=== PATIENT | male | born 2000 | race Caucasian/White ===

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

== ENCOUNTER 2022-06-10 21:57 | Emergency (ER) | payer OTHER, SELFPAY ==
[2022-06-10 21:59] VITALS: BP 126/59; PULSE 85; RESP 16; TEMP 36.8; O2SAT 98; BMI 33.5
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
== END 2022-06-11 01:11 | disposition home or self-care (01) ==
PROVIDERS: Emergency Provider Emergency Medicine
DX: S82.54XA Nondisplaced fracture of medial malleolus of right tibia, initial encounter for closed fracture (principal); X50.1XXA Overexertion from prolonged static or awkward postures, initial encounter; Y93.51 Activity, roller skating (inline) and skateboarding; Y92.414 Local residential or business street as the place of occurrence of the external cause; Y99.9 Unspecified external cause status
CPT/HCPCS: 29515; 73600; 99284

== ENCOUNTER 2022-06-14 08:03 | Outpatient (REF) | payer OTHER, SELFPAY ==
--- NOTE | ~2022-06-14 | XR_ITS ---
EXAMINATION: XR ANKLE, RIGHT CLINICAL INFORMATION: Pain; follow-up medial malleolus fracture. COMPARISON: Prior radiographs, most recently 06/10/2022. TECHNIQUE: AP, lateral, and mortise views of the right ankle. FINDINGS: Bony mineralization is normal. There is stable alignment of a mildly displaced fracture of the medial malleolus. No new significant callus formation is seen. The ankle mortise shows slight medial widening to 6 mm. There is soft tissue swelling of the medial ankle. There is no right ankle joint effusion. Boehler's angle is normal. No calcaneal spur is seen. XR/XR ankle RT min 3V IMPRESSION: There is stable alignment of a mildly displaced fracture of the medial malleolus. No new significant callus formation is seen.
== END 2022-06-14 08:04 | disposition home or self-care (01) ==
LOC: HO.HOSX 08:03
PROVIDERS: Visit Provider Physician Assistant
DX: S82.51XA Displaced fracture of medial malleolus of right tibia, initial encounter for closed fracture (principal); X58.XXXD Exposure to other specified factors, subsequent encounter
CPT/HCPCS: 73610; 99202

== ENCOUNTER 2022-06-19 11:43 | Day surgery (SDC) | payer OTHER, SELFPAY ==
--- NOTE | 2022-06-18 09:49 | P.CONAN_ITS ---
Documented by User: Citlali Delarosa NP 06/18/22 09:50 HPI - Anesthesia Eval Consult details Narrative: 21yo M for Right Ankle Fracture ORIF [facility] Active Problems Active Problems: All Active Problems (Updated 06/14/22 @ 15:40 by Lily Logan) Fracture of medial malleolus, right, closed (Acute) Past Medical History Medical History (Updated 06/14/22 @ 15:40 by Lily Logan) Asthma Surgical History Surgical History (Updated 06/14/22 @ 14:28 by WALDEMAR Geiger) History of placement of ear tubes Social History Social History (Updated 06/14/22 @ 14:29 by WALDEMAR Geiger) Alcohol intake: never Patient Tobacco Use Status: Never used Tobacco Use of substances other than those prescribed or required for medical reasons: Yes Substance Use Type: Marijuana Are you DNR?: No Advance Directives: No Advance Directives Information Provided: Yes Current occupational status: unemployed Meds Allergies Allergy/AdvReac Type Severity Reaction Status Date / Time No Known Allergies Allergy Verified 06/14/22 14:35 [No Known Allergies*] Exam Exam Date and Time: June 18, 2022 0949 Assessment and Plan Assessment Anesthesia Assessment: Chart Reviewed Documented by User: Gladys Ballesteros MD 06/19/22 12:18 [facility] Past Medical History Medical History (Updated 06/14/22 @ 15:40 by Lily Logan) Asthma Family History Family history of problems with anesthesia: No Surgical History Surgical History (Updated 06/14/22 @ 14:28 by WALDEMAR Geiger) History of placement of ear tubes History of Problems with Anesthesia: No Social History Social History (Updated 06/14/22 @ 14:29 by WALDEMAR Geiger) Alcohol intake: never Patient Tobacco Use Status: Never used Tobacco Use of substances other than those prescribed or required for medical reasons: Yes Substance Use Type: Marijuana Are you DNR?: No Advance Directives: No Advance Directives Information Provided: Yes Current occupational status: unemployed Meds Allergies Allergy/AdvReac Type Severity Reaction Status Date / Time No Known Allergies Allergy Verified 06/14/22 14:35 [No Known Allergies*] Exam Airway Mallampati Class: II (Cracked tooth, front and back) TM Dist: >3cm Neck ROM: Full Heart: rrr Lungs: cta Assessment and Plan Assessment Anesthesia Assessment: Anesthesia Plan Discussed and Chart Reviewed Final Anesthetic Review Family History of Problems with Anesthesia: No History of Problems with Anesthesia: No NPO: Yes ASA Class: II Final Preanesthetic Review: No Changes in Pt Med Stat, Meds/Allgs Chart Reviewed and Consent Obtained/Reviewed Patient Risk: Intermediate Procedure Risk: Intermediate Anesthetic Plan Anesthetic Plan: GA Disposition: Standard PACU
[2022-06-19] VITALS (7 sets, daily range): BP systolic 120–137; BP diastolic 63–89; PULSE 70–87; RESP 14–18; TEMP 36.6–36.8; O2SAT 93–100; BMI 34.4
--- NOTE | ~2022-06-19 | FL_ITS ---
EXAMINATION: XR FLUOROSCOPY WITH IMAGES CLINICAL INFORMATION: Reduction medial malleolar fracture. COMPARISON: Ankle radiographs 05/18/2022 TECHNIQUE: Fluoroscopy Supervised By: Dr. Butch Ramirez. Fluoroscopy Time: 0.1 minutes. Cumulative Dose: 0.729 mGy. DAP: 0.0126 Gycm2. Images: 7. FINDINGS: Fracture base medial malleolus is reduced with 2 cannulated screws. Hardware intact. Fracture fragments in near-anatomic alignment. No dislocation. FL/FL guidance in OR IMPRESSION: Status post open reduction internal fixation medial malleolar fracture.
[2022-06-19] MEDS: Lactated Ringers 1,000 ML 100 ML IVCONT (12:29)
--- NOTE | 2022-06-19 14:18 | MHC.SHP ---
Pre-Procedural Eval Section A Date of Service: 06/19/22 The patient is an INPATIENT: No Changes since office visit: No Cold of Flu in the past 2 weeks, No New Medical Problems, No Changes in Medication and No Patient answered all questions The History & Physical has been completed within 30 days and I have reviewed it.: Yes Section B Chief Complaint: Nondisplaced fracture of lateral malleolus of righ Allergies: Allergies Allergy/AdvReac Type Severity Reaction Status Date / Time No Known Allergies Allergy Verified 06/14/22 14:35 [No Known Allergies*] Plan I have reviewed the history and physical and performed a pertinent physical examination on my patient. No changes have occurred unless specified. Time Spent With Patient Time: Total time managing care of this patient today ____ minutes.
--- NOTE | 2022-06-19 15:22 | PM.OP ---
Brief Operative Note Date of Service: 06/19/22 Pre-op diagnosis: Right medial malleolus fracture Post-op diagnosis: same Procedure: ORIF right medial malleolus Implants: 2 x 4.0 40 mm cannulated screws Surgeon: Butch Ramirez MD Anesthesia: GETA and local Was an Liquor Bridge Operator Helper used for this Procedure?: No Estimated blood loss (mL): 25 IV fluids (mL): 800 Pathology: none sent Condition: stable Disposition: PACU
--- NOTE | 2022-06-19 15:30 | W.PM.OPN ---
Operative Note Operative Note Date of Service: 06/19/22 Narrative: Date of Service: 06/19/22 Pre-op diagnosis: Right medial malleolus fracture Post-op diagnosis: same Procedure: ORIF right medial malleolus Implants: 2 x 4.0 40 mm cannulated screws Surgeon: Butch Ramirez MD Anesthesia: GETA and local Was an Radio Communications Superintendent used for this Procedure?: No Estimated blood loss (mL): 25 IV fluids (mL): 800 Pathology: none sent Condition: stable Disposition: PACU Procedure in detail: Patient was brought to the operating room and placed supine on the operative table. All bony prominences were well padded and a time-out was called to identify proper site proper procedure proper surgeon. IV antibiotics per weight were administered. I began by visulaizing the displaced medial mallolar fracture with biplanar fluoro. I then made a standard oblique medial incision over the medial malleolus. Care was take to avoid the saphenous vein and full-thickness flaps were taken down to the distal tibia. The fracture was identified and cleaned with a combination of curette, rongeur and irrigation. A lobster claw was used to provisionally reduce the fracture and 2 threaded k-wirtes were placed perpindicular to the fracture. Biplanar fluoroscopy was used to confirm hardware position and fracture reduction. Once I was satisfied that both of these were acceptable I overdrilled and placed 2 partially threaded 4;0 cancellous screws. I was satisfied with the position and the fracture reduction based on biplanar fluoroscopy. This syndesmosis was tested using external rotation test and was found to be stable. I radiolgraphically examined the ficual and there was no appreciable fracture. Therefore all instrumentation was removed and copious irrigation was performed. Absorbable suture and iwona were used for closure and the patient was placed into sterile dressings and a well-padded posterior splint. Tourniquet was let down and the patient was extubated brought to recovery room in stable condition there were no known complications.
[2022-06-19] MEDS: oxyCODONE HCl Immed Release 5 MG TABLET 10 MG PO (16:02)
[2022-06-19] MEDS: Ketorolac Tromethamine 30 MG/ML VIAL 15 MG IVPUSH (16:05)
== END 2022-06-19 16:36 ==
LOC: HO.SSS 11:44
PROVIDERS: Visit Provider Orthopaedic Surgery
PROC: (CPT 27766; principal; 2022-06-19 14:10)
DX: S82.51XA Displaced fracture of medial malleolus of right tibia, initial encounter for closed fracture (principal); V00.1 Rolling-type pedestrian conveyance accident; Y93.21 Activity, ice skating; Y92.9 Unspecified place or not applicable; Y99.8 Other external cause status; J45.909 Unspecified asthma, uncomplicated
CPT/HCPCS: 27766; C1713; J0690; J1100; J1885; J2250; J2795; J3010

== ENCOUNTER → 2022-07-01 11:06 | Outpatient (BNVA) | payer OTHER, SELFPAY | PROVIDERS: Visit Provider Physician Assistant | DX: Z13.89 Encounter for screening for other disorder (principal) ==

== ENCOUNTER 2022-07-08 11:28 | Outpatient (REF) | payer OTHER, SELFPAY ==
--- NOTE | ~2022-07-08 | XR_ITS ---
EXAMINATION: XR ANKLE, RIGHT CLINICAL INFORMATION: Pain. COMPARISON: Radiograph of the right ankle 06/14/2022. TECHNIQUE: AP, lateral, and mortise views of the right ankle. FINDINGS: There are two obliquely oriented screws traversing a medial malleolar fracture with improved alignment and decreased conspicuity of the fracture line compared to 06/14/2022 suggesting some degree of interval healing. No new injuries. Joint alignment is anatomic. Decreased soft tissue swelling along the medial surface of the ankle with skin surgical iwona noted. XR/XR ankle RT min 3V IMPRESSION: 1. Healing medial malleolar fracture with improved alignment. 2. No evidence of hardware failure. 3. No new injuries. 4. Decreased soft tissue swelling.
== END 2022-07-08 11:29 | disposition home or self-care (01) ==
LOC: HO.HOSX 11:28
PROVIDERS: Visit Provider Physician Assistant
DX: S82.51XD Displaced fracture of medial malleolus of right tibia, subsequent encounter for closed fracture with routine healing (principal)
CPT/HCPCS: 29405; 73610

== ENCOUNTER 2022-08-06 09:45 | Outpatient (REF) | payer OTHER, SELFPAY ==
--- NOTE | ~2022-08-06 | XR_ITS ---
EXAMINATION: XR ANKLE, RIGHT CLINICAL INFORMATION: Right ankle pain. COMPARISON: 07/08/2022 and studies dating back to 06/10/2022. TECHNIQUE: AP, lateral, and mortise views of the right ankle. FINDINGS: 2 screws for fixation of medial malleolar fracture again noted. There appears to be anatomic alignment. No evidence of fracture or loosening of the screws. There is some osteopenia present. The fracture line is less evident and appears to have bony fusion. There is some soft tissue swelling present. XR/XR ankle RT min 3V IMPRESSION: Bony union of right medial malleolar fracture with screws in place. Soft tissue swelling. Osteopenia.
== END 2022-08-06 09:46 | disposition home or self-care (01) ==
LOC: HO.HOSX 09:45
PROVIDERS: Visit Provider Physician Assistant
DX: S82.51XD Displaced fracture of medial malleolus of right tibia, subsequent encounter for closed fracture with routine healing (principal); X58.XXXD Exposure to other specified factors, subsequent encounter
CPT/HCPCS: 73610

== ENCOUNTER 2022-09-17 10:13 | Outpatient (REF) | payer OTHER, SELFPAY | END 2022-09-17 10:14 | disposition home or self-care (01) | LOC: HO.HOSX 10:13 | PROVIDERS: Visit Provider Physician Assistant | DX: Z13.89 Encounter for screening for other disorder (principal) ==

== ENCOUNTER 2022-12-01 20:57 | Emergency (ER) | payer OTHER, SELFPAY ==
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
[2022-12-01 21:11] VITALS: BP 146/84; PULSE 68; RESP 16; TEMP 36.7; O2SAT 99; BMI 30.7
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
== END 2022-12-01 22:25 | disposition home or self-care (01) ==
PROVIDERS: Emergency Provider Emergency Medicine
DX: S61.532A Puncture wound without foreign body of left wrist, initial encounter (principal); S63.502A Unspecified sprain of left wrist, initial encounter; Y04.1XXA Assault by human bite, initial encounter; Y93.89 Activity, other specified; Y92.9 Unspecified place or not applicable; Y99.9 Unspecified external cause status
CPT/HCPCS: 73110; 99282; 99283

== ENCOUNTER 2025-01-24 11:03 | Emergency (ER) | payer OTHER, SELFPAY ==
[2025-01-24 11:06] VITALS: BP 123/67; BP 160/100; PULSE 72; PULSE 89; RESP 17; TEMP 36.2; O2SAT 98; O2SAT 99; BMI 31.6
--- NOTE | 2025-01-24 11:26 | ED_ITS ---
HPI - Anxiety General Chief Complaint: Syncope Stated Complaint: PANIC ATTACK @ COURT PER EMS Time Seen by Provider: 01/24/25 11:05 Source: patient Limitations: no limitations History of Present Illness HPI narrative: This is a very pleasant 24 years old the patient presented to the emergency department with a chief complaint of anxiety , he was court for family dispute and he had an episode of anxiety and ambulance was called. He is more calm cooperative now he denies SI and HI complaint: anxiety Onset (ago): hour(s) (1) Symptoms: other (anxiety) Severity: moderate Place: other (court) Provoking factors: none known Relieving factors: nothing Related Data Previous Rx's ?Medication ?Instructions ?Recorded ibuprofen 400 mg tablet 400 mg PO Q6H PRN pain #20 t abs 09/17/20 acetaminophen 500 mg tablet 500 mg PO Q6H PRN fever or pain 06/10/22 #14 tabs ibuprofen 600 mg tablet 600 mg PO TID PRN fever or p ain 06/10/22 #14 tabs Knee scooter #1 ea 06/14/22 oxycodone-acetaminophen 5 mg-325 1 tab PO Q4-6H PRN po st op pain 06/19/22 mg tablet (Percocet) #30 tabs amoxicillin 875 mg-potassium 1 tab PO BID 7 days #14 t abs 12/01/22 clavulanate 125 mg tablet lorazepam 0.5 mg tablet 0.5 mg PO DAILY PRN anxiety #2 tabs 01/24/25 Allergies Allergy/AdvReac Type Severity Reaction Status Date / Time No Known Allergies (No Known Allergy Verified 01/24/25 11:08 Allergies*) Review of Systems Constitutional: Constitutional: Reports no additional constitutional complaints Cardiovascular: Cardiovascular: Reports no additional cardiovascular complaints Psychiatric: Psychiatric: Reports as per HPI [facility] Past Medical History Attestation statement: The following information was validated with the patient. [facility] Narrative: asthma Medical History Asthma Surgical History History of placement of ear tubes Social History Social History Alcohol intake: never Patient Tobacco Use Status: Never used Tobacco Substance Use Type: Marijuana Advance Directives: No Advance Directives Information Provided: No Do you have a plan to hurt others: No Plan Current occupational status: unemployed Physical Exam Exam: Exam: No acute distress looks well comfortable in the stretcher vital signs stable Vital Signs: Vital Signs: Last Vital Signs Temp 97.2 F 01/24/25 12:52 Pulse 70 01/24/25 12:52 Resp 15 01/24/25 12:52 BP 114/72 01/24/25 12:52 Pulse Ox 98 01/24/25 12:52 O2 Del Method Room Air 01/24/25 12:52 BMI result Body Mass Index 31.6 Const: General: cooperative Orientation/consciousness: patient oriented x3 Limitations: no limitations HEENT: Head: Yes normal to inspection Ears: hearing grossly normal bilaterally Face and sinus: Yes normal facial exam Mouth: Normal oral and palatal mucosa present Neck: Neck: Yes normal visual inspection Chest: Chest palpation & inspection: normal inspection of the chest Resp: Effort & Inspection: normal respiratory effort Cardio: Jugular venous distension: no JVD Palpation: normal PMI Rhythm: regular rhythm GI: Inspection: Yes normal to inspection Palpation (GI): Soft to palpation, not firm and nontender Percussion: Yes normal to percussion Skin: General skin exam: no rashes or lesions noted Lesions: no lesions Rashes: no rashes Neuro: General: patient oriented x3 Extrem: General: Yes normal to inspection Right upper extremity: normal to inspection Course Reevaluation(s) Reevaluation #1: Patient is here for an evaluation of the panic attack at this time is calm and cooperative we will administer a dose of benzodiazepine and observe Reevaluation #2: On re-examination she is feeling much better, I spoke with the grandmother as well. At this time retic can be safely discharged home Time: 12:52 Medications Administered Discontinued Medications Generic Name Dose Route Start Last Admin Trade Name Freq PRN Reason Stop Dose Admin Lorazepam 0.5 mg 01/24/25 11:25 01/24/25 11:37 Lorazepam 0.5 Mg Tablet PO 01/24/25 11:26 0.5 mg ONCE ONE Administration Medical Decision Making Medical Decision Making MDM Narrative: Brought in with a panic attack we will administer benzo observe Differential Diagnosis Differential Diagnoses: The differential diagnosis associated with the presentation includes Anxiety/panic attack/depression/viral syndrome Independent Historian Grandmother Prescription Management I considered prescription management with: Other anxiety meds Chronic Conditions Patient?s care impacted by: Other (anxiety) Discharge Plan Discharge Clinical Impression: Panic attack Patient Disposition: Home, Self-Care Instructions: Panic Attack (ED) Additional Instructions: Please follow-up with your primary care physician return to the emergency room if worse I sent 2 tablets of lorazepam to the pharmacy downstairs for your Prescriptions: New lorazepam 0.5 mg tablet 0.5 mg PO DAILY PRN (Reason: anxiety) Qty: 2 0RF No Action ibuprofen 400 mg tablet 400 mg PO Q6H PRN (Reason: pain) Qty: 20 0RF ibuprofen 600 mg tablet 600 mg PO TID PRN (Reason: fever or pain) Qty: 14 0RF acetaminophen 500 mg tablet 500 mg PO Q6H PRN (Reason: fever or pain) Qty: 14 0RF oxycodone-acetaminophen [Percocet] 5-325 mg tablet 1 tab PO Q4-6H PRN (Reason: post op pain) Qty: 30 0RF Rx Instructions: Partial Fill upon patient request. amoxicillin-pot clavulanate 875-125 mg tablet 1 tab PO BID 7 Days Qty: 14 0RF (DME) Knee scooter See Rx Instructions .ROUTE .MEDSUPPLY Qty: 1 0RF Rx Instructions: As directed Print Language: Hungarian
[2025-01-24 11:30] VITALS: BP 123/67; PULSE 72; RESP 17; TEMP 36.2; O2SAT 98
--- OUTSIDE RECORDS SUMMARY | 2025-01-24 12:16 | XMS_ITS ---
Author Name [facility] Organization Unknown Care Team Organization Name Specialty Phone Email Start Date End Da te [facility] 04/23/202201/14
--- OUTSIDE RECORDS SUMMARY | 2025-01-24 12:16 | XMS_ITS | Clinical Summary ---
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; COMMENT: [employer] Unspecified otitis media 02/16,08/17,03/20, DX:Uns pecified otitis media Acute bronchiolitis 06/19 DX:Acute bro nchiolitis Unspecified asthma(493.90) 08/17,03/20,04/20 DX:U nspecified asthma(493.90); COMMENT: RAD Expressive language disorder 11/18 DX: Expressive language disorder Unspecified family circumstance 07/15/2011 DX:Unspecified family circumstance; COMMENT: active DCF case ADHD (attention deficit hyperactivity disorder) DX:ADHD (attention deficit hyperactivity disorder); COMMENT: Concerta Learning problem DX:Learning pro blem; COMMENT: has IEP Family History Medical History Relation Name Comments Diabetes Other 1 MGGM Diabetes Other 2 MGGF Hypertension Other 3 MGGF Stroke Other 4 MGGF Relation Name Status Comments Father Alive Mother Alive 1986-VERNON MAYELIN RDI Other 1 Other 2 Other 3 Other 4 Social History Tobacco Use Types Packs/Day Years Used Date Smoking Tobacco: Passive Smo ke Exposure - Never Smoker Smokeless Tobacco: Never Alcohol Use Standard Drinks/Week Comments Yes 0 (1 standard drink = 0.6 oz pur e alcohol) Sex and Gender Information Value Date Recorded Sex Assigned at Male 09/09/2024 10:25 AM EDT Legal Sex Male 10:42 PM EST Gender Identity Male 09/09/2024 10:25 AM EDT Sexual Orientation Straight 09/09/2024 10 :25 AM EDT Obstetrics History Last Filed Vital Signs Vital Sign Reading Time Taken Comments Blood Pressure 121/79 09/09/2024 9:17 AM EDT Pulse 63 09/09/2024 9:17 AM EDT Temperature 36.6 C (97.9 F) 09/09/2024 9:17 AM EDT Respiratory Rate 16 09/09/2024 9:17 AM EDT Oxygen Saturation 99% 09/09/2024 9:17 AM EDT Inhaled Oxygen Concentration - - Weight 99.8 kg (220 lb) 09/09/2024 9:17 AM EDT Height 177.8 cm (5' 10 ) 09/09/2024 9:17 AM EDT Body Mass Index 31.57 09/09/2024 9:17 AM EDT Plan of Treatment Health Maintenance Due Date Last Done Comments Meningococcal B Vaccine (1 of 2 - Standard) 2018 COVID-19 Vaccine (3 - season) 2024 11/11/2020, 10/21/2020 Depression Screening 06/16/2024 DTaP,Tdap,and Td Vaccines (7 - Td or Tdap) 08/09/2024 08/09/2014, 11/10/2007, 03/05/2004, Additional history exists HIV Screening 09/09/2024 Hepatitis C Screening 09/09/2024 Social Influencers of Health Screening 09/09/2024 Influenza Vaccine (#1) 2025 , 04/04/2017, 02/25/2014, Additional history exists Hepatitis B Vaccines Completed 08/30/2003, 2002, 2002 HIB Vaccines Completed 03/05/2004, 02/15, 06/24/2003, Additional history exists Pneumococcal Vaccine: Pediatrics (0 to 5 Years) and At-Risk Patients (6 to 49 Years) Completed 06/01/2004, 06/24/2003, 04/01/2003, Additional history exists MMR Vaccines Completed 02/11/2007, 03/05/2004 Varicella Vaccines Completed 02/11/2007, 12/12/2003 IPV Vaccines Completed 11/10/2007, 02/15, 08/30/2003, Additional history exists HPV Vaccines Completed 10/22/2016, 08/23/2015 Meningococcal ACWY Vaccine Completed 01/13/2019, Hepatitis A Vaccines Aged Out No long er eligible based on patient's age to complete this topic RSV Immunization Patients Under 20 months Aged Out No longer eligible based on patient's age to complete this topic Insurance [facility] Care Teams Verification Lead Relationship Specialty Start Date End Date Shaji Cintron MD Need Additional Information. PCP - General Pediatrics 11/19/17
[2025-01-24 12:52] VITALS: BP 114/72; PULSE 70; RESP 15; TEMP 36.2; O2SAT 98
[2025-01-24 13:49] VITALS: BP 118/65; PULSE 68; RESP 14; TEMP 36.6; O2SAT 99
[2025-01-24 13:52] VITALS: BP 118/65; PULSE 68; RESP 14; TEMP 36.6; O2SAT 99
== END 2025-01-24 13:52 | disposition home or self-care (01) ==
PROVIDERS: Emergency Provider Emergency Medicine
DX: F41.9 Anxiety disorder, unspecified (principal)
CPT/HCPCS: 99283; 99284